=== PATIENT | female | born 1950 | race Caucasian/White ===

== ENCOUNTER 2023-01-01 03:39 | Inpatient (IN) | payer MEDICARE ==
[2023-01-01 06:26] VITALS: BMI 20.9
[2023-01-01] MEDS ORDERED: Glucagon 1 MG/ML KIT IM PRN (06:49)
[2023-01-01] MEDS ORDERED: Insulin Regular 300 UNITS/3 ML VIAL SC PRN ×2 (06:49)
[2023-01-01] MEDS ORDERED: Ondansetron PF 4 MG/2 ML Vial IVP PRN (06:49)
[2023-01-01] MEDS ORDERED: Dextrose 50% Abboject 50 ML SYRINGE SLOW IVP PRN (06:49)
[2023-01-01] MEDS ORDERED: Dextrose 5% in Water 1,000 ML IV PRN (06:49)
[2023-01-01] MEDS ORDERED: Ondansetron ODT 4 MG TAB PO PRN (06:49)
[2023-01-01] MEDS ORDERED: Cyclobenzaprine 10 MG TAB PO PRN (07:33)
[2023-01-01 07:36] LABS: #Basophils 0.1 thou/uL (0.0-0.2); #Eosinphils 0.2 thou/uL (0.0-0.7); #Monocytes 0.4 thou/uL (0.11-0.59); #Neutrophils 3.5 thou/uL (1.40-6.50); %Eosinophils 2.9 % (0.0-10.0); %Lymphocytes 23.1 % (21.0-51.0); %Monocytes 6.7 % (0.0-10.0); %Neutrophils 65.7 % (42.0-75.0); Hematocrit 36.9 % (36.0-47.0); Mean Corpuscular HGB CONC 32.5 g/dL (32.0-36.0); Mean Corpuscular Hemoglobin 27.8 pg (27.0-31.0); Mean Corpuscular Volume 85.4 fl (78.0-98.0); Mean Platelet Volume 10.2 fL (7.4-10.4); Platelet Count 158 10x3/uL (130-400); RBC Distribution Width 12.9 % (11.5-14.5); Red Blood Cell (RBC) Count 4.32 mill/uL (4.20-5.40); White Blood Cell (WBC) Count 5.2 10x3/uL (4.8-10.8)
[2023-01-01] MEDS ORDERED: TETANUS, DIPHTHERIA TOX,ADULT (TDVAX) 0.5 ML VIAL IM ONE (08:00)
[2023-01-01 08:01] LABS: Anion Gap 16 mmol/L (10-20); BUN (Urea Nitrogen) 19 mg/dL (9.8-20.1); Calc. Creatinine Clearance 42 mL/min (70-130); Calcium 8.1 mg/dL (7.8-10.44); Carbon Dioxide 24 mmol/L (23-31); Chloride 104 mmol/L (98-107); Estimated GFR 55; Glucose 95 mg/dL (80-115); Phosphorus 3.3 mg/dL (2.3-4.7); Potassium 2.8 mmol/L (3.5-5.1); Sodium 141 mmol/L (136-145)
[2023-01-01 08:10] LABS: Magnesium 0.7 mg/dL (1.6-2.6)
[2023-01-01] MEDS ORDERED: Magnesium Sulfate In Water 4 GM in Premix Bag 1 BAG IVPB SCH (08:30)
[2023-01-01] MEDS ORDERED: Famotidine 20 MG TAB PO SCH (09:00)
[2023-01-01] MEDS: Potassium Chloride 8 MEQ TAB PO SCH (09:05)
[2023-01-01] MEDS: Magnesium Oxide 400 MG TAB PO SCH (09:06)
[2023-01-01] MEDS: Escitalopram Oxalate 10 mg Tablet PO SCH (09:06)
[2023-01-01] MEDS: Bupropion 100 MG SR TAB PO SCH ×2 (09:06→21:37)
[2023-01-01] MEDS: Acetaminophen 325 MG TAB PO SCH ×3 (09:09→21:37)
[2023-01-01] MEDS ORDERED: clonazePAM 0.5 MG TAB PO SCH (21:00)
[2023-01-01] MEDS ORDERED: Latanoprost 0.005% Ophth Soln 2.5 ml Bottle EA EYE SCH (21:00)
[2023-01-01] MEDS ORDERED: Donepezil HCl 5 MG TAB PO SCH (21:00)
[2023-01-01] MEDS ORDERED: Atorvastatin Calcium 20 MG TAB PO SCH (21:00)
[2023-01-01] MEDS ORDERED: cefTRIAXone\\ROCEPHIN 1 GM in Sodium Chloride 0.9% 100 ML IVPB SCH (22:00)
[2023-01-02] MEDS: Acetaminophen/Codeine 30-300mg Tablet PO PRN ×2 (00:34→05:35)
[2023-01-02] MEDS: Acetaminophen 325 MG TAB PO SCH ×2 (04:31→09:36)
[2023-01-02 05:58] LABS: #Basophils 0.1 thou/uL (0.0-0.2); #Eosinphils 0.2 thou/uL (0.0-0.7); #Monocytes 0.4 thou/uL (0.11-0.59); #Neutrophils 2.3 thou/uL (1.40-6.50); %Basophils 1.2 % (0.0-1.0); %Eosinophils 4.6 % (0.0-10.0); %Lymphocytes 31.3 % (21.0-51.0); %Monocytes 8.6 % (0.0-10.0); %Neutrophils 54.1 % (42.0-75.0); Hemoglobin 12.9 g/dL (12.0-16.0); Mean Corpuscular HGB CONC 33.1 g/dL (32.0-36.0); Mean Corpuscular Hemoglobin 27.7 pg (27.0-31.0); Mean Corpuscular Volume 83.9 fl (78.0-98.0); Platelet Count 172 10x3/uL (130-400); RBC Distribution Width 12.7 % (11.5-14.5); Red Blood Cell (RBC) Count 4.65 mill/uL (4.20-5.40); White Blood Cell (WBC) Count 4.3 10x3/uL (4.8-10.8)
[2023-01-02] MEDS ORDERED: Levothyroxine Sodium 50 MCG TAB PO SCH (06:00)
[2023-01-02 06:37] LABS: Anion Gap 11 mmol/L (10-20); BUN (Urea Nitrogen) 11 mg/dL (9.8-20.1); Calc. Creatinine Clearance 53 mL/min (70-130); Calcium 8.1 mg/dL (7.8-10.44); Carbon Dioxide 27 mmol/L (23-31); Chloride 105 mmol/L (98-107); Estimated GFR 73; Glucose 92 mg/dL (80-115); Magnesium 2.5 mg/dL (1.6-2.6); Phosphorus 2.6 mg/dL (2.3-4.7); Potassium 3.3 mmol/L (3.5-5.1); Sodium 140 mmol/L (136-145)
[2023-01-02] MEDS ORDERED: Potassium Phosphate 30 MMOL in Sodium Chloride 0.9% 250 ML 250 ML IVPB SCH (09:00)
[2023-01-02] MEDS ORDERED: Nitrofurantoin Monohyd/M-Cryst 100 MG CAP PO SCH (09:00)
[2023-01-02] MEDS ORDERED: Senokot S 8.6-50 MG TAB PO SCH (09:00)
[2023-01-02] MEDS ORDERED: Aspirin 81 mg Enteric Coated Tablet PO SCH (09:00)
[2023-01-02] MEDS: Bupropion 100 MG SR TAB PO SCH (09:24)
[2023-01-02] MEDS: Magnesium Oxide 400 MG TAB PO SCH (09:25)
[2023-01-02] MEDS: Potassium Chloride 8 MEQ TAB PO SCH (09:26)
[2023-01-02] MEDS: Escitalopram Oxalate 10 mg Tablet PO SCH (09:27)
[2023-01-02 13:13] VITALS: BP 122/66; TEMP 98.1
== END 2023-01-02 15:39 | disposition home health service (06) | DRG 552 ==
LOC: SJJU 03:39
PROVIDERS: ADMIT Surgery; ATTEND Surgery
DX: S32.048A Other fracture of fourth lumbar vertebra, initial encounter for closed fracture (principal); N17.9 Acute kidney failure, unspecified; N39.0 Urinary tract infection, site not specified; E11.9 Type 2 diabetes mellitus without complications; G30.9 Alzheimer's disease, unspecified; F02.80 Dementia in other diseases classified elsewhere, unspecified severity, without behavioral disturbance, psychotic disturbance, mood disturbance, and anxiety; E03.9 Hypothyroidism, unspecified; I10 Essential (primary) hypertension; E87.6 Hypokalemia; E83.42 Hypomagnesemia; W19.XXXA Unspecified fall, initial encounter; Y92.009 Unspecified place in unspecified non-institutional (private) residence as the place of occurrence of the external cause
CPT/HCPCS: 36415; 36416; 80048; 83735; 84100; 85025; J0696; J3475; J3480; J3490; J7030; J7050